=== PATIENT | male | born 1975 | race African-American/Black ===

== ENCOUNTER 2018-10-18 11:27 | Emergency (ER) | payer OTHER ==
[2018-10-18 11:35] VITALS: BP 137/71; PULSE 98; TEMP 98.9; BMI 24.7
--- NOTE | 2018-10-18 12:11 | PDOC ---
History of Present Illness - General Chief Complaint: Palpitations Stated Complaint: HEART PALPITATIONS Time Seen by Provider: 10/18/18 12:10 - History of Present Illness Initial Comments: 10/18/18 12:10 Mr. Isaac is a 43 yo male w/ no pmh who presents for evaluation of L arm pain. Patient reports he got a tetanus booster 2 weeks ago following a cut and has since had pain at site. Patient also reports he has had palpitations when lying down at night in the 2 weeks following the booster shot. He further endorses some mild congestion. No other symptoms at this time. The patient denies chest pain, shortness of breath, headache and dizziness. Denies fever, chills, nausea, vomit, diarrhea and constipation. Denies dysuria, frequency, urgency and hematuria. Past History - Past Medical History Allergies/Adverse Reactions: Allergies Allergy/AdvReac Type Severity Reaction Status Date / Time No Known Allergies Allergy Verified 10/18/18 11:35 Home Medications: Ambulatory Orders NK [No Known Home Medication] 10/18/18 COPD: No - Suicide/Smoking/Psychosocial Hx Smoking History: Current every day smoker Number of Cigarettes Smoked Daily: 10 Information on smoking cessation initiated: Yes Hx Alcohol Use: No Drug/Substance Use Hx: No Review of Systems - Review of Systems Comments:: 10/18/18 12:12 GENERAL/CONSTITUTIONAL: No fever or chills. No weakness. HEAD, EYES, EARS, NOSE AND THROAT: No change in vision. No ear pain or discharge. No sore throat. CARDIOVASCULAR: +Palpitations at night before bed as described. No chest pain or shortness of breath RESPIRATORY: No cough, wheezing, or hemoptysis. GASTROINTESTINAL: No nausea, vomiting, diarrhea or constipation. GENITOURINARY: No dysuria, frequency, or change in urination. MUSCULOSKELETAL: +L arm pain as described. No joint or muscle swelling or pain. No neck or back pain. SKIN: No rash NEUROLOGIC: No headache, vertigo, loss of consciousness, or change in strength/ sensation. ENDOCRINE: No increased thirst. No abnormal weight change HEMATOLOGIC/LYMPHATIC: No anemia, easy bleeding, or history of blood clots. ALLERGIC/IMMUNOLOGIC: No hives or skin allergy. *Physical Exam - Vital Signs Last Vital Signs Temp Pulse Resp BP Pulse Ox 98.9 F 98 H 18 137/71 99 10/18/18 11:29 04/15/19 11:29 10/18/18 11:29 10/18/18 11:29 10/18/18 11:29 - Physical Exam Comments: 10/18/18 12:12 GENERAL: Awake, alert, and fully oriented, in no acute distress HEAD: No signs of trauma, normocephalic, atraumatic EYES: PERRLA, EOMI, sclera anicteric, conjunctiva clear ENT: Auricles normal inspection, hearing grossly normal, nares patent, oropharynx clear without exudates. Moist mucosa NECK: Normal ROM, supple, no lymphadenopathy, JVD, or masses LUNGS: +Mild rhonchi appreciated at R lung bases. No distress, speaks full sentences, clear to auscultation bilaterally HEART: Regular rate and rhythm, normal S1 and S2, no murmurs, rubs or gallops, peripheral pulses normal and equal bilaterally. ABDOMEN: Soft, nontender, normoactive bowel sounds. No guarding, no rebound. No masses EXTREMITIES: Normal inspection, Normal range of motion, no edema. No clubbing or cyanosis. NEUROLOGICAL: Cranial nerves II through XII grossly intact. Normal speech, normal gait, no focal sensorimotor deficits SKIN: Warm, Dry, normal turgor, no rashes or lesions noted. ED Treatment Course - LABORATORY CBC & Chemistry Diagram: 10/18/18 12:26 10/18/18 12:26 Medical Decision Making - Medical Decision Making 10/18/18 12:33 Mr. Isaac is a 43 yo male w/ no pmh who presents for evaluation of pain and palpitations s/p tetanus booster. Patient evaluated with single cardiac lab as well as CBC/CMP and EKG for ACS r/o. CXR further ordered for r/o pneumonia. 10/18/18 12:41 Upon repeat interview patient requesting G/C evaluation. Urine sent. 10/18/18 13:18 Labs grossly unconcerning as below. EKG normal sinus. No concern for acute process at this time. Discharging to home. Patient will be contacted regarding urine read if positive. Laboratory Results - last 24 hr 10/18/18 10/18/18 12:26 12:26 WBC 3.0 L RBC 4.19 Hgb 13.9 Hct 41.1 MCV 98.2 H MCH 33.2 MCHC 33.8 RDW 11.5 L Plt Count 258 MPV 8.3 Absolute Neuts (auto) 1.0 L Neutrophils % 35.2 L Lymphocytes % 48.3 H Monocytes % 13.0 H Eosinophils % 2.6 Basophils % 0.9 Nucleated RBC % 0 Sodium 134 L Potassium 4.1 Chloride 104 Carbon Dioxide 24 Anion Gap 5 L BUN 13 Creatinine 1.0 Creat Clearance w eGFR 81.17 Random Glucose 129 H Calcium 9.1 Total Bilirubin 0.3 AST 19 ALT 24 Alkaline Phosphatase 68 Creatine Kinase 202 Troponin I < 0.02 Total Protein 7.7 Albumin 4.2 *DC/Admit/Observation/Transfer Diagnosis at time of Disposition: Arm pain Qualifiers: Laterality: unspecified laterality Qualified Code(s): M79.603 - Pain in arm, unspecified - Discharge Dispostion Disposition: HOME - Referrals Referrals: Vikram Lopez [Primary Care Provider] - - Patient Instructions Printed Discharge Instructions: DI for Arm Pain Additional Instructions: You were evaluated today in the ER for your pain and palpitations. We performed laboratory evaluation along with EKG and chest Xray with no concerning findings. You can follow-up outpatient with your primary care provider later this week for further evaluation. You may take over the counter motrin or tylenol per package instructions for pain control. Return to ER if any exacerbation of pain, fever, chills, or other concerning symptoms. - Post Discharge Activity
--- NOTE | 2018-10-18 12:37 | PDOC ---
Attending Attestation - Resident Resident Name: Danielito Lai - ED Attending Attestation I have performed the following: I have examined & evaluated the patient, The case was reviewed & discussed with the resident, I agree w/resident's findings & plan, Exceptions are as noted
[2018-10-18 12:43] LABS: BASO % 0.9 % (0-2.0); EOS % 2.6 % (0-4.5); HEMATOCRIT 41.1 % (35.4-49); HEMOGLOBIN 13.9 GM/dL (11.7-16.9); LYMPH % 48.3 % (8-40); MCH 33.2 pg (25.7-33.7); MCHC 33.8 g/dl (32.0-35.9); MEAN CELL VOLUME 98.2 fl (80-96); MEAN PLT VOLUME 8.3 fl (7.5-11.1); NEUT % 35.2 % (42.8-82.8); PLATELET COUNT 258 K/MM3 (134-434); RBC 4.19 M/mm3 (4.00-5.60); RDW 11.5 % (11.9-15.9)
[2018-10-18 13:08] LABS: ALBUMIN 4.2 g/dl (3.4-5.0); ALK PHOS 68 U/L (45-117); ANION GAP 5 MMOL/L (8-16); BILIRUBIN,TOTAL 0.3 mg/dL (0.2-1); BLOOD UREA NITROGEN 13 mg/dL (7-18); CALCIUM 9.1 mg/dL (8.5-10.1); CHLORIDE 104 mmol/L (98-107); CO2 24 mmol/L (21-32); GLUCOSE,RANDOM 129 mg/dL (74-106); POTASSIUM 4.1 mmol/L (3.5-5.1); SGOT/AST 19 U/L (15-37); SGPT/ALT 24 U/L (13-61); SODIUM 134 mmol/L (136-145); TOT PROT 7.7 g/dl (6.4-8.2)
--- NOTE | 2018-10-18 13:35 | PDOC ---
Documentation entered by Uzma Marinelli SCRIBE, acting as scribe for Bianca Katz MD. Attending Attestation - Resident Resident Name: Danielito Lai - ED Attending Attestation I have performed the following: I have examined & evaluated the patient, The case was reviewed & discussed with the resident, I agree w/resident's findings & plan - HPI HPI: 10/18/18 12:49 The patient is a 43 year old male with no PMH who presents to the ER for left arm pain over the site of a tetanus booster he had 2 weeks ago. Patient also admits to palpitations at night when trying to sleep and mild congestion. The patient denies chest pain, shortness of breath, headache and dizziness. Denies fever, chills, nausea, vomit, diarrhea and constipation. Denies dysuria, frequency, urgency and hematuria. Allergies: NKA Past surgical history: None reported. Social history: No reported alcohol, drug or cigarette use. - Physicial Exam PE: GENERAL: Awake, alert, and fully oriented, in no acute distress HEAD: No signs of trauma EYES: PERRLA, EOMI, sclera anicteric, conjunctiva clear ENT: Auricles normal inspection, hearing grossly normal, nares patent, oropharynx clear without exudates. Moist mucosa NECK: Normal ROM, supple, no lymphadenopathy, JVD, or masses LUNGS: Breath sounds equal, clear to auscultation bilaterally. No wheezes, and no crackles HEART: Regular rate and rhythm, normal S1 and S2, no murmurs, rubs or gallops ABDOMEN: Soft, nontender, normoactive bowel sounds. No guarding, no rebound. No masses EXTREMITIES: Normal range of motion, no edema. No clubbing or cyanosis. No cords, erythema, or tenderness NEUROLOGICAL: Cranial nerves II through XII grossly intact. Normal speech, normal gait. Motor and sensation intact SKIN: Warm, Dry, normal turgor, no rashes or lesions noted. - Medical Decision Making Pt presents with tingling to L arm going into the L sided pec muscles after having a tetanus shot. Low risk for ME by clinical eval. Symptoms are likely due to the shot, which may have been instilled into a nerve. Pt reassured, no further intervention at this time. Imaging: Chest XR Impression: The imaging reveals clear lungs, normal mediastinum and sharp angles. There is some old scarring in the apices which appears relatively symmetrical. Soft tissues are intact. 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 There are no prior chest studies for comparison. Correlation recommended Reported By: Adolph Arboleda MD, Elizabeth, MD: This documentation has been prepared by the Isis schroeder Daisy, SCRIBE, under my direction and personally reviewed by me in its entirety. I confirm that the documentation accurately reflects all work, treatment, procedures, and medical decision making performed by me.
--- NOTE | 2018-10-19 11:00 | EKG ---
Test Reason : Blood Pressure : / mmHG Vent. Rate : 088 BPM Atrial Rate : 088 BPM P-R Int : 174 ms QRS Dur : 086 ms QT Int : 328 ms P-R-T Axes : 067 061 039 degrees QTc Int : 396 ms NORMAL SINUS RHYTHM NORMAL ECG NO PREVIOUS ECGS AVAILABLE Confirmed by MD Dejuan, Tai ([id number]) on 10/19/2018 11:00:03 AM Referred By: Confirmed By:Tai Zaidi MD
== END 2018-10-18 13:42 | disposition home or self-care (01) ==
LOC: JER 11:27
DX: M79.602 Pain in left arm (principal); R00.2 Palpitations; Y84.8 Other medical procedures as the cause of abnormal reaction of the patient, or of later complication, without mention of misadventure at the time of the procedure
CPT/HCPCS: 36415; 71046-TC-FY; 80053; 82550; 82553; 84484; 85025; 87491; 87591; 93005; 93010; 99283-25